=== PATIENT | female | born 1980 | race Caucasian/White ===

== ENCOUNTER 2018-08-12 07:09 | Day surgery (SDC) | payer BC, OTHER ==
[~2018-08-12 07:09] MED LIST: Dexamethasone 4 MG/ML 5 ML MDV ONE; Lactated Ringers 1,000 ML IV SCH; Lidocaine 1% 4 ML ONE; Lidocaine 1%/Sod Bicarbonate in NS 8.4% 1 ML Syringe IDERM PRN; Midazolam 1 MG/ML 2 ML SDV ONE; Ondansetron 4 MG/2 ML SDV ONE; Propofol 200 MG/20 ML SDV ONE; Sodium Chloride 0.9% 10 ML Syringe FLUSH PRN; fentaNYL 250 MCG/5 ML SDV ONE
--- NOTE | 2018-08-12 07:17 | PCM.OPNOTE ---
- General Post-Op/Procedure Note Date of Surgery/Procedure: 08/12/18 Operative Procedure(s): Total vaginal hysterectomy Findings: SVE with mobile, anteverted uterus. Grossly normal appearance of the ovaries bilaterally. Pre Op Diagnosis: Abnormal uterine bleeding Post-Op Diagnosis: Same Anesthesia Technique: General ET Tube Primary Surgeon: Alysa Rodriguez Secondary Surgeon: Karlie Kaba Anesthesia Provider: Berry Galvez Reason Flame Burner Was Necessary: Speed, safety of case Pathology: Cervix and uterus sent to pathology Fluid Replacement, Intraop: 1,300 Output, Urine Amount: 200 EBL in mLs: 20 Complications: None Condition: Good Free Text/Narrative:: The risks, benefits, indications, potential complications, and alternatives were explained to the patient and informed consent obtained. The patient was taken to the Operating Room where general anesthesia was induced without complication and found to be adequate. The patient was placed in dorsal lithotomy with gissell stirrups and an exam under anesthesia revealed the findings detailed above. The patient was then prepped and draped in the usual sterile fashion. Catheter placed. A weighted speculum was placed in the vagina, and the cervix was grasped with a double tooth tenaculum. The cervix was injected circumferentially with 10 mL of lidocaine with dilute epinephrine. The cervix was then circumferentially incised with a scalpel. The posterior cul-de-sac was entered sharply without difficulty. An 0-Vicryl pop-off suture was placed posteriorly to include the posterior vaginal mucosa and the posterior peritoneum. The short weighted speculum was replaced with a long weighted speculum into the peritoneal cavity posteriorly. The bladder was dissected away from the pubovesical cervical fascia anteriorly with a sponge and blunt dissection. The uterosacral ligaments were grasped on either side with the Ligasure, cauterized, and transected. Hemostasis was assured. A raytec was used for further blunt dissection of the bladder away from the pubovesical cervical fascia and then the anterior cul de sac was entered sharply with Metzenbaum scissors. The cardinal ligaments were then serially clamped with the Ligasure, cauterized, and transected. The uterine arteries were then clamped, cauterized, and transected. Hemostasis was adequate. Both cornua were then clamped, cauterized , and transecte. The uterus was removed. There was slight bleeding from the right pedicle which was controlled with an 0 vicryl suture placed in a figure of eight fashion. Hemostasis was noted. The posterior peritoneum was then closed with a running, locked suture of 0 vicryl. The vaginal cuff was closed in a running locked fashion with 0-Vicryl. Prior to complete closure Pasquale seal was placed along the vaginal cuff. Hemostasis was noted. The catheter was removed. The patient was awoken and and taken to PACU. All sponge, lap, needle, and instrument counts were correct x 2. The patient tolerated the procedure well and there were no complications.
[2018-08-12] MEDS ORDERED: Lidocaine 1% with EPINEPHrine 1:100,000 20 ML MDV ONE (07:18)
--- NOTE | 2018-08-12 07:33 | PCM.PREANE ---
Preanesthetic Assessment - Procedure Proposed Procedure: total vaginal hysterectomy - Anesthesia/Transfusion/Family Hx Anesthesia History: Prior Anesthesia Without Reaction Family History of Anesthesia Reaction: No Transfusion History: No Prior Transfusion(s) - Review of Systems General: No Symptoms Pulmonary: No Symptoms Cardiovascular: No Symptoms Gastrointestinal: No Symptoms Neurological: No Symptoms Other: Reports: Depression, Anxiety - Physical Assessment NPO Status Date: 08/11/18 NPO Status Time: 23:30 Pulse: 79 O2 Sat by Pulse Oximetry: 97 Respiratory Rate: 16 Blood Pressure: 104/75 Temperature: 97 F Height: 5 ft 5 in Weight: 59 kg ASA Class: 2 Mental Status: Alert & Oriented x3 Airway Class: Mallampati = 1 Dentition: Reports: Normal Dentition Thyro-Mental Finger Breadths: 3 Mouth Opening Finger Breadths: 3 ROM/Head Extension: Full Lungs: Clear to Auscultation, Normal Respiratory Effort Cardiovascular: Regular Rate, Regular Rhythm - Allergies Allergies/Adverse Reactions: Allergies Allergy/AdvReac Type Severity Reaction Status Date / Time No Known Allergies Allergy Verified 08/11/18 12:25 - Blood Blood Available: No - Acknowledgements Anesthesia Type Planned: General Anesthesia Pt an Appropriate Candidate for the Planned Anesthesia: Yes Alternatives and Risks of Anesthesia Discussed w Pt/Guardian: Yes Pt/Guardian Understands and Agrees with Anesthesia Plan: Yes PreAnesthesia Questionnaire HEENT History: Reports: Other (See Below) (anne) Cardiovascular History: Reports: None Gastrointestinal History: Reports: GERD Other OB/BYN History: 4 vaginal deliveries. Musculoskeletal History: Reports: Back Pain, Chronic (discs out of place with 2 surgeries) Other Musculoskeletal History: shoulder injury Psychiatric History: Reports: Anxiety, Depression Oncologic (Cancer) History: Reports: None - Past Surgical History GI Surgical History: Reports: Cholecystectomy Female Surgical History: Reports: Breast Implant, Tubal Ligation Other Neurological Surgeries/Procedures: fusion spine with 0-arm navigation left lumbar 5 sacral one complete facetectomy followed by posterior interbody arthrodesis with pedicle screw fixation and posterior arhtrodesis Musculoskeletal Surgical History: Reports: Shoulder Surgery, Other (See Below) Other Musculoskeletal Surgeries/Procedures:: shoulder sursgery x2, back surgery x2, - SUBSTANCE USE Smoking Status *Q: Current Every Day Smoker Tobacco Use Within Last Twelve Months: Cigarettes Second Hand Smoke Exposure: Yes Days Per Week of Alcohol Use: 1 Recreational Drug Use History: No - HOME MEDS Home Medications: Home Meds traMADol [Ultram] 50 mg PO Q6HR PRN 02/14/15 [History] Albuterol Sulfate [Albuterol Sulfate HFA] 18 gm IH Q4H #1 hfa.aer.ad 08/26/15 [ Rx] ALPRAZolam [Xanax] 0.25 mg PO ASDIRECTED PRN 08/11/18 [History] ARIPiprazole [Abilify] 2 mg PO DAILY 08/11/18 [History] Calcium Carbonate [Tums] 2 tab PO ASDIRECTED PRN 08/11/18 [History] DULoxetine [Cymbalta] 60 mg PO DAILY 08/11/18 [History] Gabapentin [Neurontin] 600 mg PO TID 08/11/18 [History] - CURRENT (IN HOUSE) MEDS Current Meds: Current Medications Lactated Ringer's (Ringers, Lactated) 1,000 mls @ 125 mls/hr IV ASDIRECTED DELORES Stop: 08/12/18 23:00 Lidocaine/Sodium Bicarbonate (Buffered Lidocaine 1% In Ns 8.4%) 0.25 ml IDERM ONETIME PRN PRN Reason: Prior to IV Start Stop: 08/12/18 18:00 Sodium Chloride (Saline Flush) 10 ml FLUSH ASDIRECTED PRN PRN Reason: Keep Vein Open Stop: 08/12/18 18:00 Discontinued Medications Dexamethasone (Dexamethasone) Confirm Administered Dose 20 mg .ROUTE .STK-MED ONE Stop: 08/12/18 07:01 Fentanyl (Sublimaze) Confirm Administered Dose 250 mcg .ROUTE .STK-MED ONE Stop: 08/12/18 06:58 Lidocaine HCl (Xylocaine-Mpf 1%) Confirm Administered Dose 4 mls @ as directed .ROUTE .STK-MED ONE Stop: 08/12/18 06:57 Lidocaine/Epinephrine (Xylocaine 1% With Epinephrine 1:100,000) Confirm Administered Dose 20 ml .ROUTE .STK-MED ONE Stop: 08/12/18 07:19 Midazolam HCl (Versed 1 Mg/Ml) Confirm Administered Dose 2 mg .ROUTE .STK-MED ONE Stop: 08/12/18 06:58 Ondansetron HCl (Zofran) Confirm Administered Dose 4 mg .ROUTE .STK-MED ONE Stop: 08/12/18 06:57 Propofol (Diprivan 20 Ml) Confirm Administered Dose [address] .[facility] ONE Stop: 08/12/18 06:57
[2018-08-12] MEDS ORDERED: Sodium Chloride 0.9% 50 ML SDV ONE (07:35)
[2018-08-12] MEDS ORDERED: Albuterol 0.083% 2.5 MG/3 ML Neb Soln NEB ONE (07:37)
[2018-08-12] MEDS ORDERED: ceFAZolin 1 GM Vial ONE (07:57)
[2018-08-12] MEDS ORDERED: Rocuronium 50 MG/5 ML Vial ONE (07:57)
[2018-08-12] MEDS ORDERED: diphenhydrAMINE 50 MG/ML SDV ONE (08:09)
[2018-08-12] MEDS ORDERED: Ketorolac 30 MG/ML SDV ONE ×2 (08:10→09:14)
[2018-08-12] MEDS ORDERED: Ondansetron 4 MG/2 ML SDV IVPUSH PRN (08:19)
[2018-08-12] MEDS ORDERED: fentaNYL 100 MCG/2 ML SDV IVPUSH PRN (08:19)
[2018-08-12] MEDS ORDERED: HYDROmorphone 0.5 MG/0.5 ML Syringe IVPUSH PRN (08:19)
[2018-08-12] MEDS ORDERED: Meperidine 50 MG/ML Vial IVPUSH PRN (08:19)
[2018-08-12] MEDS ORDERED: HYDROmorphone 0.5 MG/0.5 ML Syringe ONE ×2 (08:20→08:59)
[2018-08-12] MEDS ORDERED: Ketamine 500 mg/10 ML MDV ONE (08:23)
[2018-08-12] MEDS ORDERED: Lactated Ringers 1,000 ML ONE (08:33)
[2018-08-12] MEDS ORDERED: fentaNYL 100 MCG/2 ML SDV ONE (09:01)
[2018-08-12] MEDS ORDERED: Neostigmine Methylsulfate 1 MG/ML 5 ML Syringe ONE (09:10)
[2018-08-12] MEDS ORDERED: Bacitracin Oint 15 GM Tube ONE (09:33)
--- NOTE | 2018-08-12 09:46 | PCM.POSTAN ---
POST ANESTHESIA ASSESSMENT - MENTAL STATUS Mental Status: Somnolent - VITAL SIGNS Pulse Rate: 85 SaO2: 100 Resp Rate: 13 Blood Pressure: 121/68 Temperature: 98.4 F - RESPIRATORY Respiratory Status: Respiratory Rate WNL, Airway Patent, O2 Saturation Stable, Supplemental Oxygen - CARDIOVASCULAR CV Status: Pulse Rate WNL, Blood Pressure Stable - GASTROINTESTINAL GI Status: No Symptoms - PAIN Pain Score: 0 - POST OP HYDRATION Hydration Status: Adequate & Stable
[2018-08-12] MEDS ORDERED: Acetaminophen/oxyCODONE 325-5 MG Tab PO PRN ×2 (10:55→10:59)
--- NOTE | 2018-08-12 10:55 | PCM48HPAN ---
Post Anesthesia Note - EVALUATION WITHIN 48HRS OF ANESTHETIC Vital Signs in Normal Range: Yes Patient Participated in Evaluation: Yes Respiratory Function Stable: Yes Airway Patent: Yes Cardiovascular Function Stable: Yes Hydration Status Stable: Yes Pain Control Satisfactory: Yes Nausea and Vomiting Control Satisfactory: Yes Mental Status Recovered: Yes - COMMENTS/OBSERVATIONS Free Text/Narrative:: sitting up in bed- complains of cramping- medicated. states feels pretty good. Denies nausea
[2018-08-12 13:39] VITALS: BP 123/62
== END 2018-08-12 12:42 | disposition home or self-care (01) ==
LOC: JD.SDS 07:09
PROVIDERS: ATTEND Obstetrics & Gynecology
DX: D25.9 Leiomyoma of uterus, unspecified (principal); K21.9 Gastro-esophageal reflux disease without esophagitis; N72 Inflammatory disease of cervix uteri; F41.9 Anxiety disorder, unspecified; F32.9 Major depressive disorder, single episode, unspecified; F17.210 Nicotine dependence, cigarettes, uncomplicated; Z79.899 Other long term (current) drug therapy
CPT/HCPCS: 36415; 58260; 80048; 81025; 85025; 86850; 86900; 86901; 94640; A9270; J0690; J1100; J1170; J1200; J1885; J2250; J2405; J2704; J2710; J3010; J7120; 00944; J2001

== ENCOUNTER 2018-08-19 17:49 | Emergency (ER) | payer BC ==
[2018-08-19] MEDS ORDERED: Ondansetron 4 MG/2 ML SDV IVPUSH ONE (18:37)
[2018-08-19] MEDS ORDERED: HYDROmorphone 0.5 MG/0.5 ML SYRINGE IVPUSH STA (18:37)
[2018-08-19] MEDS ORDERED: Iopamidol 755 Mg/ML 100 ML Bottle IVPUSH ONE (18:44)
--- NOTE | 2018-08-19 18:44 | EDM.PDOC ---
<Fortino Zhang - Last Filed: 08/19/18 19:35> ED HPI GENERAL MEDICAL PROBLEM - General Chief Complaint: SYSTEMS QA ANALYST Problem Stated Complaint: POST SURGICAL PAIN/HYSTERECTOMY X 1 WEEK Time Seen by Provider: 08/19/18 18:11 Source of Information: Reports: Patient, Old Records (OR 08/12/2018), RN Notes Reviewed History Limitations: Reports: No Limitations - History of Present Illness INITIAL COMMENTS - FREE TEXT/NARRATIVE: Medical records indicate that the patient underwent a total vaginal hysterectomy one week ago today, 08/12/2018, per Dr. Alysa Rodriguez. She was discharged home on 08/14/2018, with a prescription for 20 tablets of Percocet. The patient states that she has been experiencing anticipated postoperative pain. She followed up with Dr. Rodriguez this past 08/17/2018. She states that she then developed much more severe suprapubic and low back pain yesterday , 08/18/2018, made worse with eating, then today, she developed left anterior chest pain and left shoulder pain, both made worse with deep breaths. She states that she has had dysuria ever since surgery, but denies frequency. She is unsure if she has urinary urgency. The patient did not contact Dr. Rodriguez either yesterday or today about her new symptoms, but cannot explain why not. The patient's PCP is Isamar Potter. Lower Abdomen Pain Score (Numeric/FACES): 10 - Related Data Allergies Allergy/AdvReac Type Severity Reaction Status Date / Time No Known Allergies Allergy Verified 08/19/18 17:59 Home Meds: Home Meds Albuterol Sulfate [Albuterol Sulfate HFA] 18 gm IH Q4H #1 hfa.aer.ad 08/26/15 [ Rx] ALPRAZolam [Xanax] 0.25 mg PO ASDIRECTED PRN 08/11/18 [History] ARIPiprazole [Abilify] 2 mg PO DAILY 08/11/18 [History] Calcium Carbonate [Tums] 2 tab PO ASDIRECTED PRN 08/11/18 [History] DULoxetine [Cymbalta] 60 mg PO DAILY 08/11/18 [History] Gabapentin [Neurontin] 600 mg PO TID 08/11/18 [History] Acetaminophen/oxyCODONE [Percocet 325-5 MG] 1 - 2 each PO Q6H PRN #20 tab [Rx] Nitrofurantoin Monohyd/M-Cryst [Macrobid 100 mg Capsule] 100 mg PO BID #10 capsule 08/19/18 [Rx] oxyCODONE HCl/Acetaminophen [Percocet 5-325 mg Tablet] 1 - 2 each PO Q6HR PRN # 20 tablet 08/19/18 [Rx] Past Medical History HEENT History: Reports: Impaired Vision (wears glasses) 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 Musculoskeletal History: Reports: Back Pain, Chronic (discs out of place with 2 surgeries), Other (See Below) (Chronic right shoulder pain) Psychiatric History: Reports: Anxiety, Depression - Past Surgical History GI Surgical History: Reports: Cholecystectomy (2008) Female Surgical History: Reports: Breast Implant (2005), D&C (2003 or 2005), Hysterectomy (08/12/2018), Salpingo-Oophorectomy (08/12/2018), Tubal Ligation ( 2009) Neurological Surgical History: Reports: Lumbar Spine (fusion spine with 0-arm navigation left lumbar 5 sacral one complete facetectomy followed by posterior interbody arthrodesis with pedicle screw fixation and posterior arthrodesis, with subsequent removal of hardware) Musculoskeletal Surgical History: Reports: Shoulder Surgery (arthroscopic x2) Social & Family History - Tobacco Use Smoking Status *Q: Current Every Day Smoker Years of Tobacco use: 22 Packs/Tins Daily: 0.5 Packs/Tins Daily Comment: Down from 1 ppd - Caffeine Use Caffeine Use: Reports: Coffee, Energy Drinks - Alcohol Use Alcohol Use History: Yes Alcohol Use Frequency: Rarely - Recreational Drug Use Recreational Drug Use: Yes Drug Use in Last 12 Months: Yes Recreational Drug Type: Reports: Marijuana/Hashish (CBD oil) - Living Situation & Occupation Living situation: Reports: , with Spouse, with Family (5 kids + her brother) Occupation: Employed ([employer]) ED ROS GENERAL - Review of Systems Review Of Systems: ROS reveals no pertinent complaints other than HPI. ED EXAM, GENERAL - Physical Exam Exam Limited By: No Limitations General Appearance: Alert, WD/WN, Anxious, Mild Distress (appears uncomfortable) Eye Exam: Bilateral Eye: EOMI, Normal Inspection Ears: Normal External Exam Nose: Normal Inspection Throat/Mouth: Normal Inspection, Normal Lips, Normal Voice, No Airway Compromise Head: Atraumatic, Normocephalic Neck: Normal Inspection, Full Range of Motion Respiratory/Chest: No Respiratory Distress, Lungs Clear, Normal Breath Sounds, No Accessory Muscle Use Cardiovascular: Normal Peripheral Pulses, Regular Rate, Rhythm, No Edema, No Gallop, No JVD, No Murmur, No Rub Peripheral Pulses: 4+: Radial (L), Radial (R) GI/Abdominal: Normal Bowel Sounds, Soft, No Organomegaly, No Distention, No Abnormal Bruit, No Mass, Tender (Generalized, but greatest in the suprapubic area) (Female) Exam: Deferred Rectal (Female) Exam: Deferred Back Exam: Normal Inspection, Full Range of Motion. No: CVA Tenderness (L), CVA Tenderness (R) Extremities: Normal Inspection, Normal Range of Motion, No Pedal Edema, Normal Capillary Refill Neurological: Alert, Oriented, Normal Cognition, No Motor/Sensory Deficits Psychiatric: Normal Affect Skin Exam: Warm, Dry, Intact, Normal Color, No Rash Course - Vital Signs Last Recorded V/S: Last Vital Signs Temp 100.1 F 08/19/18 17:55 Pulse 131 H 08/19/18 17:55 Resp 18 08/19/18 17:55 BP 143/90 H 08/19/18 17:55 Pulse Ox 100 08/19/18 17:55 - Orders/Labs/Meds Orders: Active Orders 24 hr Category Date Time Status Sodium Chloride 0.9% [Normal Saline] 1,000 ml Med 08/19/18 18:45 Active IV ASDIRECTED Medication Orders Sodium Chloride (Normal Saline) 1,000 mls @ 150 mls/hr IV ASDIRECTED DELORES Last Admin: 08/19/18 18:50 Dose: 150 mls/hr Labs: Laboratory Tests 08/19/18 08/19/18 08/19/18 Range/Units 18:40 18:45 18:45 WBC 15.92 H (3.98-10.04) K/mm3 RBC 4.51 (3.98-5.22) M/mm3 Hgb 14.5 (11.2-15.7) gm/L Hct 42.6 (34.1-44.9) % MCV 94.5 (79.4-94.8) fl MCH 32.2 (25.6-32.2) pg MCHC 34.0 (32.2-35.5) g/dl RDW Std Deviation 42.5 (36.4-46.3) fL Plt Count 318 (182-369) K/mm3 MPV 11.7 (9.4-12.3) fl Neutrophils % (Manual) 73 H (40-60) % Band Neutrophils % 0 (0-10) % Lymphocytes % (Manual) 20 (20-40) % Atypical Lymphs % 0 % Monocytes % (Manual) 5 (2-10) % Eosinophils % (Manual) 2 (0.7-5.8) % Basophils % (Manual) 0 L (0.1-1.2) Platelet Estimate Adequate RBC Morph Comment Normal Sodium 132 L (136-145) mEq/L Potassium 3.8 (3.5-5.1) mEq/L Chloride 98 (98-107) mEq/L Carbon Dioxide 23 (21-32) mEq/L Anion Gap 14.8 (5-15) BUN 9 (7-18) mg/dL Creatinine 0.7 (0.55-1.02) mg/dL Est Cr Clr Drug Dosing 99.98 mL/min Estimated GFR (MDRD) > 60 (>60) mL/min BUN/Creatinine Ratio 12.9 L (14-18) Glucose 94 (74-106) mg/dL Calcium 9.0 (8.5-10.1) mg/dL Total Bilirubin 1.2 H (0.2-1.0) mg/dL AST 79 H (15-37) U/L ALT 249 H (14-59) U/L Alkaline Phosphatase 568 H (46-116) U/L Total Protein 7.6 (6.4-8.2) g/dl Albumin 3.3 L (3.4-5.0) g/dl Globulin 4.3 gm/dL Albumin/Globulin Ratio 0.8 L (1-2) Lipase 67 L (73-393) U/L Urine Color (Yellow) Urine Appearance (Clear) Urine pH (5.0-8.0) Ur Specific [place] (1.005-1.030) Urine Protein (Negative) Urine Glucose (UA) (Negative) Urine Ketones (Negative) Urine Occult Blood (Negative) Urine Nitrite (Negative) Urine Bilirubin (Negative) Urine Urobilinogen (0.2-1.0) Ur Leukocyte Esterase (Negative) Urine RBC (0-5) /hpf Urine WBC (0-5) /hpf Ur Epithelial Cells (0-5) /hpf Urine Bacteria (FEW) /hpf Urine Mucus (FEW) /hpf Acetaminophen 0 L (10-30) ug/mL 08/19/18 Range/Units 18:45 WBC (3.98-10.04) K/mm3 RBC (3.98-5.22) M/mm3 Hgb (11.2-15.7) gm/L Hct (34.1-44.9) % MCV (79.4-94.8) fl MCH (25.6-32.2) pg MCHC (32.2-35.5) g/dl RDW Std Deviation (36.4-46.3) fL Plt Count (182-369) K/mm3 MPV (9.4-12.3) fl Neutrophils % (Manual) (40-60) % Band Neutrophils % (0-10) % Lymphocytes % (Manual) (20-40) % Atypical Lymphs % % Monocytes % (Manual) (2-10) % Eosinophils % (Manual) (0.7-5.8) % Basophils % (Manual) (0.1-1.2) Platelet Estimate RBC Morph Comment Sodium (136-145) mEq/L Potassium (3.5-5.1) mEq/L Chloride (98-107) mEq/L Carbon Dioxide (21-32) mEq/L Anion Gap (5-15) BUN (7-18) mg/dL Creatinine (0.55-1.02) mg/dL Est Cr Clr Drug Dosing mL/min Estimated GFR (MDRD) (>60) mL/min BUN/Creatinine Ratio (14-18) Glucose (74-106) mg/dL Calcium (8.5-10.1) mg/dL Total Bilirubin (0.2-1.0) mg/dL AST (15-37) U/L ALT (14-59) U/L Alkaline Phosphatase (46-116) U/L Total Protein (6.4-8.2) g/dl Albumin (3.4-5.0) g/dl Globulin gm/dL Albumin/Globulin Ratio (1-2) Lipase (73-393) U/L Urine Color Dark yellow (Yellow) Urine Appearance Slt cloudy H (Clear) Urine pH 6.0 (5.0-8.0) Ur Specific [place] > or = 1.030 (1.005-1.030) Urine Protein 1+ H (Negative) Urine Glucose (UA) Negative (Negative) Urine Ketones 3+ H (Negative) Urine Occult Blood 2+ H (Negative) Urine Nitrite Negative (Negative) Urine Bilirubin 1+ H (Negative) Urine Urobilinogen 1.0 (0.2-1.0) Ur Leukocyte Esterase 1+ H (Negative) Urine RBC 5-10 H (0-5) /hpf Urine WBC 40-50 H (0-5) /hpf Ur Epithelial Cells 10-20 H (0-5) /hpf Urine Bacteria Many H (FEW) /hpf Urine Mucus Few (FEW) /hpf Acetaminophen (10-30) ug/mL Meds: Medications Generic Name Dose Route Start Last Admin Trade Name Freq PRN Reason Stop Dose Admin Sodium Chloride 1,000 mls @ 150 mls/hr 08/19/18 18:45 08/19/18 18:50 Normal Saline IV 150 mls/hr ASDIRECTED DELORES Administration Discontinued Medications Generic Name Dose Route Start Last Admin Trade Name Freq PRN Reason Stop Dose Admin Diatrizoate Meglum/Diatrizoate Sod 120 ml 08/19/18 18:50 08/19/18 20:32 Gastrografin 37% PO 08/19/18 18:51 Not Given ONETIME ONE Hydromorphone HCl 1 mg 08/19/18 18:37 08/19/18 18:54 Dilaudid IVPUSH 08/19/18 18:38 1 mg ONETIME STA Administration Hydromorphone HCl 0.5 mg 08/19/18 20:51 08/19/18 20:57 Dilaudid IVPUSH 08/19/18 20:52 0.5 mg ONETIME ONE Administration Iopamidol 100 ml 08/19/18 18:44 08/19/18 20:32 Isovue-370 (76%) IVPUSH 08/19/18 18:45 100 ml ONETIME ONE Administration Ondansetron HCl 4 mg 08/19/18 18:37 08/19/18 18:52 Zofran IVPUSH 08/19/18 18:38 4 mg ONETIME ONE Administration Trimethoprim/Sulfamethoxazole 1 tab 08/19/18 19:38 08/19/18 19:50 Septra Ds PO 08/19/18 19:39 1 tab ONETIME ONE Administration - Re-Assessments/Exams Free Text/Narrative Re-Assessment/Exam: 08/19/18 18:42 I am concerned that the patient could have developed a DVT/PE, and have therefore ordered a CT angiogram of the chest; a D-dimer would be useless this soon after surgery. I have also ordered a CT scan of the abdomen and pelvis with oral and IV contrast, to evaluate the patient's increased lower abdominal pain and tenderness, along with blood work and a urinalysis. The patient will receive IV Dilaudid, IV Zofran, and IV fluid. 08/19/18 19:35 The patient's WBC count has returned elevated at 15.92, but with 0% bandemia. The remainder of her CBC is unremarkable. The patient's CMP is remarkable for a sodium slightly depressed at 132. Her total bilirubin is mildly elevated at 1.2. Her AST/ALT are mildly elevated at 79 /249. Her alkaline phosphatase is elevated at 568. The remainder of her CMP is unremarkable. The patient's lipase is elevated. The patient's urinalysis shows nitrite negative, 1+ leukocyte esterase, 40-50 WBCs, and many bacteria, but also 10-20 epithelial cells, therefore we cannot distinguish a UTI from contamination. I have ordered a urine culture, and I believe it would be prudent to start the patient on oral Bactrim. Both CT scans are still pending. Case discussed with Dr. Caro, and care of the patient turned over to him at this time, for change of shift. Departure - Departure Disposition: Home, Self-Care 01 Clinical Impression: Abdominal pain, Elevated liver enzymes UTI (urinary tract infection) Qualifiers: Urinary tract infection type: site unspecified Hematuria presence: without hematuria Qualified Code(s): N39.0 - Urinary tract infection, site not specified Ovarian cyst Qualifiers: Laterality: bilateral Qualified Code(s): N83.201 - Unspecified ovarian cyst, right side; N83.202 - Unspecified ovarian cyst, left side - Discharge Information Prescriptions: oxyCODONE HCl/Acetaminophen [Percocet 5-325 mg Tablet] 1 - 2 each PO Q6HR PRN # 20 tablet PRN Reason: Pain Nitrofurantoin Monohyd/M-Cryst [Macrobid 100 mg Capsule] 100 mg PO BID #10 capsule Referrals: Alysa Rodriguez MD [Primary Care Provider] - 1 Week Forms: ED Department Discharge Additional Instructions: Take the macrobid 2 times per day for 5 days. Take the percocet as needed for pain. Drink plenty of fluids. Your liver enzymes were elevated. At this time I am not sure why they are elevated. Please have your doctor repeat them in a week or two. Please return if you are worse. <Jean-Paul Caro - Last Filed: 08/19/18 21:52> ED ROS GENERAL - Review of Systems Review Of Systems: See Below ED EXAM, GENERAL - Physical Exam Exam: See Below Course - Re-Assessments/Exams Free Text/Narrative Re-Assessment/Exam: 08/19/18 21:[address] Zhang. Her liver enzymes were elevated so I ordered a acetaminophen level and that was zero. The CT of her chest shows no thoracic aortic aneurysm or dissection, no PE is seen. Other incidental findings. Nothing acute is seen. The CT shows enlarged cystic ovaries which are likely incidental. Pelvic ultrasound could be obtained to confirm. Evidence of prior hysterectomy. Fluid collection within the lower central pelvis measuring about 3cm. This is most likely due to postoperative seroma and less likely due to paraovarian cyst. Other incidnetal findings. Nothing acute is seen on CT study of the abdomen and pelvis. She does have a UTI. I will give her a prescription for that. Departure - Departure Time of Disposition: 21:50 Condition: Good - Discharge Information *PRESCRIPTION DRUG MONITORING PROGRAM REVIEWED*: No *COPY OF PRESCRIPTION DRUG MONITORING REPORT IN PATIENT MO: No
[2018-08-19] MEDS ORDERED: Sodium Chloride 0.9% 1,000 ML IV SCH (18:45)
[2018-08-19] MEDS ORDERED: Diatrizoate Meglumine/Diatrizoate Sodium 37% 120 ML Bottle PO ONE (18:50)
[2018-08-19] MEDS ORDERED: Sulfamethoxazole/Trimethoprim 800-160 MG Tab PO ONE (19:38)
[2018-08-19] MEDS ORDERED: HYDROmorphone 0.5 MG/0.5 ML SYRINGE IVPUSH ONE ×2 (20:51→21:46)
--- NOTE | 2018-08-19 21:05 | CT ---
CT chest Technique: Multiple axial sections through the chest were obtained. Intravenous contrast was utilized. Study has been performed as a pulmonary angiogram protocol. Comparison: Previous CT chest of 08/26/15. Findings: Aorta shows no aneurysm or dissection. Pulmonary arteries show no filling defects to indicate pulmonary embolism. Mediastinum and hilar regions show no adenopathy or mass. Incidental bilateral breast prosthesis are noted. Very minimal subpleural nodule is noted within the right upper chest as well as second nodule adjacent to the major fissure within the left lower lung which are stable from prior study. Patchy groundglass appearance is seen within the chest which remains stable from prior exam which is felt to be incidental. No acute parenchymal densities are seen. Bone window settings were reviewed which appear within normal limits for the patient's age. Impression: 1. No thoracic aortic aneurysm or dissection, no pulmonary embolism is seen. 2. Other incidental findings. Nothing acute is seen. Diagnostic code #2
--- NOTE | 2018-08-19 21:16 | CT ---
CT abdomen and pelvis Technique: Multiple axial sections were obtained from above the dome of the diaphragm inferiorly through the pubic symphysis. Intravenous and oral contrast was utilized. Delayed images were obtained to the bladder. Findings: Small low-density findings seen within the inferior right lobe of the liver measuring approximately 9 mm. This does not appear to represent a simple cyst but most likely is due to small an incidental hemangioma. Small amount of fat seen next to the ligamentum teres fissure which is incidental. Liver is otherwise unremarkable. Spleen appears within normal limits. Adrenal glands show no nodule. Pancreas is normal. Surgical clips are seen from prior cholecystectomy. Kidneys show symmetric contrast enhancement without hydronephrosis or mass. Aorta shows no aneurysmal. No retroperitoneal adenopathy or mesenteric abnormalities are seen. Enlarged cystic ovaries are seen which are likely incidental. Prior hysterectomy is noted. Central fluid collection is seen measuring about 3.0 cm within the lower pelvis which may represent previous postoperative seroma or less likely paraovarian cyst. Appendix is seen which appears normal in size. No free fluid or inflammatory changes seen. Bone window settings were reviewed which shows previous surgery at L5-S1. Delayed images shows contrast within the distal ureters and within the bladder. 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 Impression: 1. Enlarged cystic ovaries which are likely incidental. Pelvic ultrasound could be obtained to confirm. Evidence of prior hysterectomy. 2. Fluid collection within the lower central pelvis measuring about 3.0 cm. This is most likely due to postoperative seroma and less likely due to paraovarian cyst. 3. Other findings as noted above which are felt to be incidental. Nothing acute is seen on CT study of the abdomen and pelvis. Diagnostic code #3
[2018-08-19 22:28] VITALS: BP 108/78
== END 2018-08-19 22:25 | disposition home or self-care (01) ==
LOC: JD.ED 17:49
DX: N83.201 Unspecified ovarian cyst, right side (principal); N39.0 Urinary tract infection, site not specified; R74.8 Abnormal levels of other serum enzymes; F17.210 Nicotine dependence, cigarettes, uncomplicated; Z90.710 Acquired absence of both cervix and uterus
CPT/HCPCS: 36415; 71275; 74177; 80053; 81001; 83690; 85007; 85027; 96361; 96374; 96375; 96376; 99284; A9270; G0480; J1170; J2405; J7040; Q9963; Q9967; 99285

== ENCOUNTER 2019-10-25 13:15 | Emergency (ER) | payer BC ==
[2019-10-25 13:44] VITALS: BP 130/88; PULSE 80
[2019-10-25] MEDS: Ketorolac 60 MG/2 ML SDV IM ONE ×2 (14:05→14:24)
[2019-10-25] MEDS: HYDROmorphone 1 MG/ML Syringe IM ONE ×2 (14:06→14:25)
[2019-10-25] MEDS ORDERED: Sodium Chloride 0.9% 10 ML Syringe FLUSH PRN (14:20)
[2019-10-25] MEDS ORDERED: HYDROmorphone 1 MG/ML Syringe IVPUSH ONE (14:22)
[2019-10-25] MEDS: Ketorolac 30 MG/ML SDV IVPUSH ONE ×2 (14:24→14:27)
--- NOTE | 2019-10-25 15:26 | CT ---
Head CT Technique: Multiple axial sections through the brain were obtained. Intravenous contrast was not utilized. Comparison: No prior intracranial imaging. Findings: Ventricles along with basal cisterns and sulci over the convexities are within normal limits for the patient's age. No abnormal parenchymal densities are seen. No evidence of intracranial hemorrhage. No midline shift or mass effect is seen. Bone window settings were reviewed which show no acute calvarial abnormality. Visualized mastoid sinuses and paranasal sinuses show nothing acute. Impression: 1. Nothing acute is appreciated on noncontrast head CT exam. Diagnostic code #1 This report was dictated in [place] Standard Time
--- NOTE | 2019-10-25 15:26 | CT ---
CT cervical spine Technique: Multiple axial sections were obtained from above the C2-C3 disc inferiorly through T1-T2 disc. Reconstructed sagittal and coronal images were reviewed. Comparison: No prior cervical spine imaging is available. Findings: Vertebral body heights and disc spaces are maintained. Vertebral bodies and posterior arches are intact. No fracture is seen. Slight kyphosis is noted. No discrete fracture or subluxation is seen. No bony central or bony neural foraminal stenosis is seen. Impression: 1. Nothing acute is seen on CT study of the cervical spine. 2. Mild kyphosis on the reconstructed sagittal images which is most likely positional. Diagnostic code #2 This report was dictated in [place] Standard Time
--- NOTE | 2019-10-25 15:26 | CT ---
CT lumbar spine Technique: Multiple axial sections were obtained through the lumbar spine. Findings: Previous surgery is noted at L5-S1 with intervertebral disc fixation. Vertebral bodies and posterior arches are intact. No fracture is seen. Posterior discs are preserved. No central canal stenosis or neural foraminal stenosis is seen. Impression: 1. Prior surgery at L5-S1. 2. Nothing acute is appreciated on CT study of the lumbar spine. Diagnostic code #2 This report was dictated in [place] Standard Time
[2019-10-25] MEDS ORDERED: HYDROmorphone 0.5 MG/0.5 ML Syringe IVPUSH ONE (15:51)
--- NOTE | 2019-10-25 16:07 | EDM.PDOC ---
ED HPI GENERAL MEDICAL PROBLEM - General Chief Complaint: Back Pain or Injury Stated Complaint: BACK/NECK PAIN, HEADACHE Time Seen by Provider: 10/25/19 13:36 Source of Information: Reports: Patient History Limitations: Reports: No Limitations - History of Present Illness INITIAL COMMENTS - FREE TEXT/NARRATIVE: The patient presents with a headache, neck pain and low back pain after a fall. She fell Friday night. She slipped on the kitchen floor and landed on a tile floor. She had no LOC. She has a headache and some neck pain. She also has lower back pain that radiates down her right leg and she has some numbness and weakness at times. She has no bowel or bladder problems. She did have surgery on her back twice and the most recent was about a year ago in [place]. Onset: Gradual (2 days) Duration: Day(s): Location: Reports: Head, Neck, Back Quality: Reports: Sharp Severity: Severe Improves with: Reports: Immobilization Worsens with: Reports: Movement Context: Reports: Trauma (Fall) Associated Symptoms: Reports: No Other Symptoms Lower Back Pain Score (Numeric/FACES): 8 Neck Pain Score (Numeric/FACES): 5 Headache Pain Score (Numeric/FACES): 3 - Related Data Allergies Allergy/AdvReac Type Severity Reaction Status Date / Time No Known Allergies Allergy Verified 10/25/19 13:34 Home Meds: Home Meds ALPRAZolam [Xanax] 0.25 mg PO ASDIRECTED PRN 08/11/18 [History] ARIPiprazole [Abilify] 2 mg PO DAILY 08/11/18 [History] DULoxetine [Cymbalta] 60 mg PO DAILY 08/11/18 [History] Gabapentin [Neurontin] 600 mg PO BID 08/11/18 [History] Hydrocodone/Acetaminophen [Hydrocodon-Acetaminophen 5-325] 1 - 2 each PO Q6HR PRN #15 tablet 10/25/19 [Rx] traMADol [Ultram] 50 mg PO QID 10/25/19 [History] Past Medical History HEENT History: Reports: Impaired Vision Other HEENT History: wears eyeglasses. Cardiovascular History: Reports: Other (See Below) Other Cardiovascular History: wore Holter monitor, showed some kind of tachy rhythm. Respiratory History: Reports: Bronchitis, Recurrent, Pneumonia, Recurrent Gastrointestinal History: Reports: GERD Genitourinary History: Reports: UTI, Recurrent ZINC MINER History: Reports: Other ZINC MINER History: 4 vaginal deliveries. Musculoskeletal History: Reports: Back Pain, Chronic, Fracture Other Musculoskeletal History: shoulder injury Neurological History: Reports: Concussion Psychiatric History: Reports: Anxiety, Depression Oncologic (Cancer) History: Reports: None - Infectious Disease History Infectious Disease History: Reports: Chicken Pox - Past Surgical History GI Surgical History: Reports: Cholecystectomy Female Surgical History: Reports: Breast Implant, D&C, Hysterectomy, Tubal Ligation Neurological Surgical History: Reports: Lumbar Spine Musculoskeletal Surgical History: Reports: Shoulder Surgery, Other (See Below) Other Musculoskeletal Surgeries/Procedures:: back surgeries Social & Family History - Tobacco Use Smoking Status *Q: Current Every Day Smoker Years of Tobacco use: 20 Packs/Tins Daily: 1 - Caffeine Use Caffeine Use: Reports: Energy Drinks - Recreational Drug Use Recreational Drug Use: No - Living Situation & Occupation Living situation: Reports: , with Spouse, with Family (5 kids + her brother) Occupation: Employed ([employer]) ED ROS GENERAL - Review of Systems Review Of Systems: See Below Constitutional: Reports: No Symptoms HEENT: Reports: No Symptoms Respiratory: Reports: No Symptoms Cardiovascular: Reports: No Symptoms Endocrine: Reports: No Symptoms GI/Abdominal: Reports: No Symptoms : Reports: No Symptoms Musculoskeletal: Reports: Neck Pain Skin: Reports: No Symptoms Neurological: Reports: Headache ED EXAM,LOWER BACK PAIN/INJURY - Physical Exam Exam: See Below Exam Limited By: No Limitations General Appearance: Alert, No Apparent Distress Ears: Normal External Exam Nose: Normal Inspection Head: Atraumatic, Normocephalic Neck: Other (pain upon palpation to the posterior neck and lateral neck) Respiratory/Chest: No Respiratory Distress, Lungs Clear, Normal Breath Sounds Cardiovascular: Regular Rate, Rhythm, No Edema, No Murmur GI/Abdominal: Soft, Non-Tender, No Organomegaly, No Mass Back Exam: Other (Pain upon palpation to the lower back, more on the right side) Extremities: Normal Inspection Neurological: Alert, No Motor/Sensory Deficits, Oriented x 3 Course - Vital Signs Last Recorded V/S: Last Vital Signs Temp 97.2 F 10/25/19 13:35 Pulse 80 10/25/19 13:35 Resp 18 10/25/19 13:35 BP 130/88 10/25/19 13:35 Pulse Ox 100 10/25/19 13:35 - Orders/Labs/Meds Orders: Active Orders 24 hr Category Date Time Status Peripheral IV Care [RC] . DIRECTED Care 10/25/19 14:21 Active Sodium Chloride 0.9% [Saline Flush] Med 10/25/19 14:20 Active 10 ml FLUSH ASDIRECTED PRN Peripheral IV Insertion Adult [OM.PC] Routine Oth 10/25/19 14:20 Ordered Medication Orders Sodium Chloride (Saline Flush) 10 ml FLUSH ASDIRECTED PRN PRN Reason: Keep Vein Open Last Admin: 10/25/19 14:29 Dose: 10 ml Meds: Medications Generic Name Dose Route Start Last Admin Trade Name Freq PRN Reason Stop Dose Admin Sodium Chloride 10 ml 10/25/19 14:20 10/25/19 14:29 Saline Flush FLUSH 10 ml ASDIRECTED PRN Administration Keep Vein Open Discontinued Medications Generic Name Dose Route Start Last Admin Trade Name Freq PRN Reason Stop Dose Admin Hydromorphone HCl 1 mg 10/25/19 13:59 10/25/19 14:25 Dilaudid IM 10/25/19 14:00 Not Given ONETIME ONE Hydromorphone HCl 1 mg 10/25/19 14:22 10/25/19 14:27 Dilaudid IVPUSH 10/25/19 14:23 1 mg ONETIME ONE Administration Hydromorphone HCl 0.5 mg 10/25/19 15:51 10/25/19 16:06 Dilaudid IVPUSH 10/25/19 15:52 0.5 mg ONETIME ONE Administration Ketorolac Tromethamine 60 mg 10/25/19 13:59 10/25/19 14:24 Toradol IM 10/25/19 14:00 Not Given ONETIME ONE Ketorolac Tromethamine 60 mg 10/25/19 14:22 10/25/19 14:27 Toradol IVPUSH 10/25/19 14:23 60 mg ONETIME ONE Administration - Re-Assessments/Exams Free Text/Narrative Re-Assessment/Exam: 10/25/19 16:25 I ordered an IV saline lock, ativan and toradol, CT of her head, cervical spine , and lumbar spine. The CTs look good. I will discharge her home. Departure - Departure Time of Disposition: 16:30 Disposition: Home, Self-Care 01 Condition: Good Clinical Impression: Fall Qualifiers: Encounter type: initial encounter Qualified Code(s): W19.XXXA - Unspecified fall, initial encounter Head injury Qualifiers: Encounter type: initial encounter Qualified Code(s): S09.90XA - Unspecified injury of head, initial encounter Cervical strain, acute Qualifiers: Encounter type: initial encounter Qualified Code(s): S16.1XXA - Strain of muscle, fascia and tendon at neck level, initial encounter Lumbar strain Qualifiers: Encounter type: initial encounter Qualified Code(s): S39.012A - Strain of muscle, fascia and tendon of lower back, initial encounter - Discharge Information *PRESCRIPTION DRUG MONITORING PROGRAM REVIEWED*: No *COPY OF PRESCRIPTION DRUG MONITORING REPORT IN PATIENT MO: No Prescriptions: Hydrocodone/Acetaminophen [Hydrocodon-Acetaminophen 5-325] 1 - 2 each PO Q6HR PRN #15 tablet PRN Reason: Pain Referrals: [facility] [Primary Care Provider] - 1 Week Forms: ED Department Discharge Additional Instructions: Take your medication as prescribed. Ice the areas that hurt. Please return if you are worse. - My Orders Last 24 Hours: My Active Orders 10/25/19 14:20 Sodium Chloride 0.9% [Saline Flush] 10 ml FLUSH ASDIRECTED PRN Peripheral IV Insertion Adult [OM.PC] Routine 10/25/19 14:21 Peripheral IV Care [RC] . DIRECTED - Assessment/Plan Last 24 Hours: My Active Orders 10/25/19 14:20 Sodium Chloride 0.9% [Saline Flush] 10 ml FLUSH ASDIRECTED PRN Peripheral IV Insertion Adult [OM.PC] Routine 10/25/19 14:21 Peripheral IV Care [RC] . DIRECTED
== END 2019-10-25 16:40 | disposition home or self-care (01) ==
LOC: SUPCPDRO 13:15 → JD.ED 13:15
DX: S09.90XA Unspecified injury of head, initial encounter (principal); S16.1XXA Strain of muscle, fascia and tendon at neck level, initial encounter; S39.012A Strain of muscle, fascia and tendon of lower back, initial encounter; F17.210 Nicotine dependence, cigarettes, uncomplicated; W01.0XXA Fall on same level from slipping, tripping and stumbling without subsequent striking against object, initial encounter; Y92.89 Other specified places as the place of occurrence of the external cause
CPT/HCPCS: 70450; 72125; 72131; 96374; 96375; 96376; 99284; J1170; J1885